=== PATIENT | male | born 1985 | race Caucasian/White ===

== ENCOUNTER 2017-08-22 22:01 | Emergency (ER) | payer OTHER, BC ==
[~2017-08-22] VITALS: Ht 175.3 cm; Wt 91.9 kg
[2017-08-22 22:09] VITALS: BP 126/89
== END 2017-08-23 00:42 | disposition home or self-care (01) ==
LOC: EME 22:01
PROC: 0HQ1XZZ Repair Face Skin, External Approach (ICD-10-PCS; principal; 2017-08-22)
DX: S01.112A Laceration without foreign body of left eyelid and periocular area, initial encounter (principal); S60.221A Contusion of right hand, initial encounter; Y04.2XXA Assault by strike against or bumped into by another person, initial encounter; Y92.149 Unspecified place in prison as the place of occurrence of the external cause; Y99.0 Civilian activity done for income or pay
CPT/HCPCS: 73130; 99281; 99283